=== PATIENT | male | born 1950 | race Caucasian/White ===

== ENCOUNTER 2019-01-08 07:39 | Day surgery (SDC) | payer MEDICARE ==
[2019-01-08] MEDS ORDERED: PROPOFOL 40 ML (09:20)
== END 2019-01-08 10:25 | disposition home or self-care (01) ==
LOC: GIL 07:39
DX: K92.1 Melena (principal); K64.8 Other hemorrhoids; K57.30 Diverticulosis of large intestine without perforation or abscess without bleeding; I10 Essential (primary) hypertension; E78.5 Hyperlipidemia, unspecified
CPT/HCPCS: 45378